=== PATIENT | female | born 1960 | race Caucasian/White ===

== ENCOUNTER 2018-01-02 04:23 | Observation (INO) | payer BC ==
[2018-01-02] MEDS ORDERED: LIDOCAINE 2% VISCOUS SOLN 20 ML UDCUP PO ONE (05:21)
[2018-01-02] MEDS ORDERED: MAG HYDROX/AL HYDROX/SIMETH SUSP 30 ML UDCUP PO ONE (05:21)
[2018-01-02] MEDS ORDERED: METOCLOPRAMIDE HCL ORAL SOLN 10 MG/10 ML UDCUP PO ONE (05:21)
--- NOTE | 2018-01-02 05:26 | ER Document Report ---
ED Medical Screen (RME) - General Chief Complaint: Abdominal Pain Stated Complaint: ABDOMINAL PAIN Mode of Arrival: Ambulatory Information source: Patient TRAVEL OUTSIDE OF THE [place] IN LAST 30 DAYS: No - HPI Notes: 01/02/18 05:23 57-year-old female with history of diabetes presents with epigastric discomfort starting at approximately 9:00 last night. She describes it as ways of pain in the epigastric region radiating straight through to her back. No nausea or vomiting or stool change with this. She did state that she pulled her upper abdomen lifting a heavy trash bag but also thinks this could be related to egg salad she made at approximately 630 last night. She has had some spontaneous improvement in pain but still having some discomfort. On brief exam she has tenderness in the epigastrium to right upper quadrant though no significant Shah sign. I have greeted and performed a rapid initial assessment of this patient. A comprehensive ED assessment with additional diagnostic/treatment considerations , analysis of diagnostic testing and completion of the medical decision making process will be conducted by additional ED providers. - Related Data Allergies/Adverse Reactions: No Known Allergies Allergy (Verified 11/13/15 18:34) Past Medical History - Social History Chew tobacco use (# tins/day): No Frequency of alcohol use: None Drug Abuse: None - Past Medical History Cardiac Medical History: Reports: Hx Hypercholesterolemia, Hx Hypertension Endocrine Medical History: Reports: Hx Diabetes Mellitus Type 2 Renal/ Medical History: Denies: Hx Peritoneal Dialysis Psychiatric Medical History: Reports: Hx Depression - Immunizations Hx Diphtheria, Pertussis, Tetanus Vaccination: Yes Physical Exam - Vital signs Vitals: Temp Pulse Resp BP Pulse Ox 97.5 F 76 18 80/60 L 98 01/02/18 04:42 01/02/18 04:42 01/02/18 04:42 01/02/18 04:42 01/02/18 04:42 Course - Vital Signs Vital signs: Temp Pulse Resp BP Pulse Ox 97.5 F 76 18 80/60 L 98 01/02/18 04:42 01/02/18 04:42 01/02/18 04:42 01/02/18 04:42 01/02/18 04:42 Doctor's Discharge - Discharge Referrals: HERMELINDA GALINDO PA-C [Primary Care Provider] - Follow up as needed
[2018-01-02 06:01] LABS: ABSOLUTE EOSINOPHILS # (AUTO) 0.2 10^3/uL (0.0-0.6); ABSOLUTE LYMPHOCYTES (AUTO) 1.1 10^3/uL (0.5-4.7); ABSOLUTE MONOCYTES (AUTO) 0.4 10^3/uL (0.1-1.4); ABSOLUTE NEUT (AUTO) 5.7 10^3/uL (1.7-8.2); BASOPHILS % (AUTO) 0.5 % (0-2); HEMATOCRIT 40.3 % (36.0-47.0); HEMOGLOBIN 14.1 g/dL (12.0-15.5); MEAN CORPUSCULAR HEMOGLOBIN 30.1 pg (27.0-33.4); MEAN CORPUSCULAR HGB CONC 34.9 g/dL (32.0-36.0); MEAN CORPUSCULAR VOLUME 86 fl (80-97); PLATELET COUNT 274 10^3/uL (150-450); RED BLOOD COUNT 4.67 10^6/uL (3.72-5.28); RED CELL DISTRIBUTION WIDTH 14.5 % (11.5-14.0); SEGMENTED NEUTROPHILS % (AUTO) 77.5 % (42-78); TOTAL CELLS COUNTED % (AUTO) 100 %; WHITE BLOOD COUNT 7.4 10^3/uL (4.0-10.5)
[2018-01-02 06:21] LABS: ALANINE AMINOTRANSFERASE 32 U/L (9-52); ALKALINE PHOSPHATASE 80 U/L (38-126); ANION GAP 10 (5-19); ASPARTATE AMINO TRANSFERASE 33 U/L (14-36); BILIRUBIN,DIRECT 0.4 mg/dL (0.0-0.4); BILIRUBIN,TOTAL 0.4 mg/dL (0.2-1.3); BLOOD UREA NITROGEN 6 mg/dL (7-20); CALCIUM 9.3 mg/dL (8.4-10.2); CARBON DIOXIDE 25 mmol/L (22-30); CHLORIDE 99 mmol/L (98-107); GLUCOSE 153 mg/dL (75-110); LIPASE 151.6 U/L (23-300); POTASSIUM 3.3 mmol/L (3.6-5.0); SODIUM 134.3 mmol/L (137-145); TOTAL PROTEIN 7.4 g/dL (6.3-8.2)
--- NOTE | 2018-01-02 06:28 | ER Document Report ---
ED GI/ - General Mode of Arrival: Ambulatory Information source: Patient TRAVEL OUTSIDE OF THE [place] IN LAST 30 DAYS: No <KRISTIN MACK - Last Filed: 01/02/18 08:36> <REGINALD LEON - Last Filed: 01/02/18 11:06> - General Chief Complaint: Abdominal Pain Stated Complaint: ABDOMINAL PAIN Time Seen by Provider: 01/02/18 06:15 Notes: 57-year-old female that presents to the emergency department today with complaints of abdominal pain that began at 2100 yesterday evening. Patient states that she ate egg salad at about 1830 last night and that was her last meal. Patient states the pain was "slow then progressed". Patient states she feels better now. Patient received a GI cocktail by [facility] provider which she states relieved her pain. (KRISTIN MACK) - Related Data Allergies/Adverse Reactions: No Known Allergies Allergy (Verified 11/13/15 18:34) Past Medical History - General Information source: Patient - Social History Smoking Status: Current Every Day Smoker Cigarette use (# per day): Yes Chew tobacco use (# tins/day): No Frequency of alcohol use: None Drug Abuse: None Lives with: Family Family History: Reviewed & Not Pertinent Patient has suicidal ideation: No Patient has homicidal ideation: No - Past Medical History Cardiac Medical History: Reports: Hx Hypercholesterolemia, Hx Hypertension Endocrine Medical History: Reports: Hx Diabetes Mellitus Type 2 Psychiatric Medical History: Reports: Hx Depression Surgical Hx: Negative - Immunizations Hx Diphtheria, Pertussis, Tetanus Vaccination: Yes <KRISTIN MACK - Last Filed: 01/02/18 08:36> Review of Systems - Review of Systems Constitutional: No symptoms reported EENT: No symptoms reported Cardiovascular: No symptoms reported Respiratory: No symptoms reported Gastrointestinal: See HPI, Abdominal pain Genitourinary: No symptoms reported Female Genitourinary: No symptoms reported Musculoskeletal: No symptoms reported Skin: No symptoms reported Hematologic/Lymphatic: No symptoms reported Neurological/Psychological: No symptoms reported -: Yes All other systems reviewed and negative <KRISTIN MACK - Last Filed: 01/02/18 08:36> Physical Exam <KRISTIN MACK - Last Filed: 01/02/18 08:36> <REGINALD LEON - Last Filed: 01/02/18 11:06> - Vital signs Vitals: Temp Pulse Resp BP Pulse Ox 97.5 F 76 18 80/60 L 98 01/02/18 04:42 01/02/18 04:42 01/02/18 04:42 01/02/18 04:42 01/02/18 04:42 - Notes Notes: Physical Exam: General: Alert, appears well. HEENT: Normocephalic. Atraumatic. PERRL. Extraocular movements intact. Oropharynx clear. Neck: Supple. Non-tender. Respiratory: No respiratory distress. Clear and equal breath sounds bilaterally. Cardiovascular: Regular rate and rhythm. Abdominal: Obese. Epigastric tenderness with palpation. RUQ tenderness with palpation which is a "different type of pain" than she was having prior. No increasing tenderness with palpation with abdominal muscle tightening. Mild diffuse abdominal tenderness with palpation. No distension. Normal Bowel Sounds. Back: Non-tender. No deformity or step off. Extremities: Moves all four extremities. Upper extremities: Normal inspection. Normal ROM. Lower extremities: Normal inspection. No edema. Normal ROM. Neurological: Normal cognition. AAOx4. Normal speech. Psychological: Normal affect. Normal Mood. Skin: Warm. Dry. Normal color. (KRISTIN MACK) Course - Laboratory Result Diagrams: 01/02/18 05:40 01/02/18 05:40 <KRISTIN MACK - Last Filed: 01/02/18 08:36> - Laboratory Result Diagrams: 01/02/18 05:40 01/02/18 05:40 - Diagnostic Test Radiology reviewed: Reports reviewed - Gallbladder ultrasound shows stones, sludge, gallbladder wall thickening with trace pericholecystic fluid. - Consults Dr. Garcia Time consulted: 08:30 Consulted provider: will come to ER <REGINALD LEON - Last Filed: 01/02/18 11:06> - Vital Signs Vital signs: Temp Pulse Resp BP Pulse Ox 97.5 F 76 18 121/78 98 01/02/18 04:42 01/02/18 04:42 01/02/18 04:42 01/02/18 06:32 01/02/18 04:42 - Laboratory Laboratory results interpreted by me: 01/02/18 01/02/18 01/02/18 05:40 05:40 06:42 RDW 14.5 H Sodium 134.3 L Potassium 3.3 L BUN 6 L Glucose 153 H Urine Urobilinogen 2.0 H Discharge <KRISTIN MACK - Last Filed: 01/02/18 08:36> - Discharge Admitting Provider: Surgicalist Unit Admitted: OR <REGINALD LEON - Last Filed: 01/02/18 11:06> - Discharge Clinical Impression: Cholecystitis, acute with cholelithiasis Qualifiers: Cholelithiasis location: gallbladder Biliary obstruction: without biliary obstruction Qualified Code(s): K80.00 - Calculus of gallbladder with acute cholecystitis without obstruction GERD (gastroesophageal reflux disease) Qualifiers: Esophagitis presence: without esophagitis Qualified Code(s): K21.9 - Gastro- esophageal reflux disease without esophagitis Condition: Stable Disposition: ADMITTED INPATIENT Referrals: HERMELINDA GALINDO PA-C [NO LOCAL MD] - Follow up as needed Scribe Attestation: 01/02/18 07:44 I personally performed the services described in the documentation, reviewed and edited the documentation which was dictated to the scribe in my presence, and it accurately records my words and actions. (REGINALD LEON) Scribe Documentation - Scribe Written by Alane:: Marianela Nascimento, 01/02/2018 0845 acting as scribe for :: Harley <KRISTIN MACK - Last Filed: 01/02/18 08:36>
[2018-01-02 07:06] LABS: APPEARANCE,URINE SLIGHTLY-CLOUDY; BILIRUBIN,URINE NEGATIVE (NEGATIVE); COLOR,URINE YELLOW; GLUCOSE, URINE NEGATIVE (NEGATIVE); KETONES,URINE NEGATIVE (NEGATIVE); LEUKOCYTE ESTERASE,URINE NEGATIVE (NEGATIVE); NITRITE,URINE NEGATIVE (NEGATIVE); PROTEIN,URINE NEGATIVE (NEGATIVE); URINE SPECIFIC GRAVITY 1.012
--- NOTE | 2018-01-02 08:23 | RADIOLOGY REPORT (SQ) ---
EXAM DESCRIPTION: U/S ABDOMEN LIMITED W/O DOP COMPLETED DATE/TIME: 01/02/2018 8:08 am REASON FOR STUDY: RUQ pain w/ epigastric pain COMPARISON: None. TECHNIQUE: Dynamic and static grayscale images acquired of the abdomen and recorded on PACS. Additio nal selected color Doppler and spectral images recorded. LIMITATIONS: None. FINDINGS: PANCREAS: No masses. No peripancreatic edema or fluid collections. LIVER: Echotexture is coarse with increased echogenicity consistent with fatty infiltration. LIVER VASCULATURE: Normal directional flow of the main portal vein and hepatic veins. GALLBLADDER: Stones and sludge. Gallbladder wall thickening. Trace pericholecystic fluid. ULTRASOUND-DETECTED HODGSON'S SIGN: Negative. INTRAHEPATIC DUCTS AND COMMON DUCT: CBD and intrahepatic ducts normal caliber. No filling defects. INFERIOR VENA CAVA: Normal flow. AORTA: No aneurysm. RIGHT KIDNEY: Normal size. Normal echogenicity. No solid or suspicious masses. No hydronephrosis. No calcifications. PERITONEAL AND RIGHT PLEURAL SPACE: No ascites or effusions. OTHER: No other significant finding. IMPRESSION: 1. STONES AND SLUDGE IN THE GALLBLADDER WITH GALLBLADDER WALL THICKENING. TRACE PERICHOLECYSTIC FLUI D. NO BILIARY DILATION. REPORTEDLY NEGATIVE SONOGRAPHIC HODGSON SIGN. 2. FATTY INFILTRATION OF THE LIVER. TECHNICAL DOCUMENTATION: JOB ID: [id number] [employer]- All Rights Reserved Reading location - IP/workstation name: [email or web address]
[2018-01-02] MEDS ORDERED: DEXAMETHASONE SOD PHOSPHATE INJ 4 MG/1 ML VIAL ONE (09:48)
[2018-01-02] MEDS ORDERED: ROCURONIUM BROMIDE INJ 50 MG/5 ML VIAL IV ONE (09:48)
[2018-01-02] MEDS ORDERED: NEOSTIGMINE METHYLSULFATE 10 MG/10 ML VIAL ONE (09:48)
[2018-01-02] MEDS ORDERED: ONDANSETRON HCL INJ/PF 4 MG/2 ML SDV ONE (09:48)
[2018-01-02] MEDS ORDERED: GLYCOPYRROLATE 1 MG/5 ML SYRINGE ONE (09:48)
--- NOTE | 2018-01-02 10:23 | EKG REPORT ---
SEVERITY:- ABNORMAL ECG - SINUS RHYTHM NONSPECIFIC T ABNORMALITIES, LATERAL LEADS BORDERLINE PROLONGED QT INTERVAL : Confirmed by: Claudine Cardenas MD 02-Jan-2018 10:22:30
[2018-01-02] MEDS ORDERED: NORMAL SALINE 1000 ML 1,000 ML IV PRN (11:25)
--- NOTE | 2018-01-02 11:25 | PDOC H&P ---
History of Present Illness Admission Date/PCP: KATIANA CASTILLO 01/02/18 Patient complains of: RUQ pain History of Present Illness: ENDY BENJAMIN is a 57 year old female witha c/o RUQ apin. Un US fo the gallbladder has been done and demonstrates cholecystitis with cholelithiasis. She suffers from HTN, hypercholesterolemia, depression, NIDDM. Past Medical History Cardiac Medical History: Reports: Hyperlipidema, Hypertension Endocrine Medical History: Reports: Diabetes Mellitus Type 2 Psychiatric Medical History: Reports: Depression Social History Lives with: Family Smoking Status: Current Every Day Smoker Frequency of Alcohol Use: Rare Hx Recreational Drug Use: No Hx Prescription Drug Abuse: No Family History Family History: Reviewed & Not Pertinent Parental Family History Reviewed: No Children Family History Reviewed: No Sibling(s) Family History Reviewed.: No Medication/Allergy Home Medications: Telmisartan [Micardis 80 mg Tablet] 80 mg PO DAILY 06/19/11 Pravastatin Sodium [Pravachol] 80 mg PO DAILY 01/26/13 Fluoxetine HCl [Prozac 20 mg Capsule] 20 mg PO DAILY #0 capsule 01/27/13 Hydrochlorothiazide 25 mg PO DAILY #0 tablet 01/27/13 Loratadine [Claritin] 10 mg PO DAILY #0 tab.rapdis 01/27/13 Lorazepam [Ativan 1 mg Tablet] 1 mg PO Q8 PRN #30 tab 01/27/13 Potassium Chloride 40 meq PO DAILY 04/11/13 Ciprofloxacin/Hydrocortisone [Cipro Hc Otic Suspension] 3 drop OT BID #1 bottle 08/29/13 Allergies/Adverse Reactions: No Known Allergies Allergy (Verified 11/13/15 18:34) Physical Exam Vital Signs: Temp Pulse Resp BP Pulse Ox 97.5 F 76 18 121/78 98 01/02/18 04:42 01/02/18 04:42 01/02/18 04:42 01/02/18 06:32 01/02/18 04:42 Intake & Output 01/01/18 01/02/18 01/03/18 06:59 06:59 06:59 Weight 80 kg General appearance: PRESENT: no acute distress Head exam: PRESENT: atraumatic Eye exam: PRESENT: EOMI Mouth exam: PRESENT: neck supple Neck exam: PRESENT: full ROM Respiratory exam: PRESENT: rhonchi, wheezes Cardiovascular exam: PRESENT: RRR GI/Abdominal exam: PRESENT: soft - obese, tenderness - RUQ Rectal exam: PRESENT: deferred Extremities exam: PRESENT: full ROM Musculoskeletal exam: PRESENT: full ROM Neurological exam: PRESENT: normal gait Psychiatric exam: PRESENT: normal mood Skin exam: PRESENT: warm Results Laboratory Results: 01/02/18 05:40 01/02/18 05:40 01/02/18 01/02/18 01/02/18 05:40 05:40 06:42 WBC 7.4 RBC 4.67 Hgb 14.1 Hct 40.3 MCV 86 MCH 30.1 MCHC 34.9 RDW 14.5 H Plt Count 274 Seg Neutrophils % 77.5 Lymphocytes % 15.0 Monocytes % 5.0 Eosinophils % 2.0 Basophils % 0.5 Absolute Neutrophils 5.7 Absolute Lymphocytes 1.1 Absolute Monocytes 0.4 Absolute Eosinophils 0.2 Absolute Basophils 0.0 Sodium 134.3 L Potassium 3.3 L Chloride 99 Carbon Dioxide 25 Anion Gap 10 BUN 6 L Creatinine 0.59 Est GFR ( Amer) > 60 Est GFR (Non-Af Amer) > 60 Glucose 153 H Calcium 9.3 Total Bilirubin 0.4 AST 33 ALT 32 Alkaline Phosphatase 80 Total Protein 7.4 Albumin 4.0 Lipase 151.6 Urine Color YELLOW Urine Appearance SLIGHTLY-CLOUDY Urine pH 6.0 Ur Specific [place] 1.012 Urine Protein NEGATIVE Urine Glucose (UA) NEGATIVE Urine Ketones NEGATIVE Urine Blood NEGATIVE Urine Nitrite NEGATIVE Ur Leukocyte Esterase NEGATIVE Urine WBC (Auto) 2 Urine RBC (Auto) 1 Impressions: Abdomen Ultrasound 01/02/18 06:34 IMPRESSION: 1. STONES AND SLUDGE IN THE GALLBLADDER WITH GALLBLADDER WALL THICKENING. TRACE PERICHOLECYSTIC FLUID. NO BILIARY DILATION. REPORTEDLY NEGATIVE SONOGRAPHIC HODGSON SIGN. 2. FATTY INFILTRATION OF THE LIVER. Assessment & Plan - Diagnosis (1) Cholecystitis, acute with cholelithiasis Qualifiers: Cholelithiasis location: gallbladder Biliary obstruction: without biliary obstruction Qualified Code(s): K80.00 - Calculus of gallbladder with acute cholecystitis without obstruction Is this a current diagnosis for this admission?: Yes - Plan Summary Plan Summary: A/ Acute cholecystitis with cholelithiasis NIDDM, BS 153 HTN controlled high cholesterols Blood work WNL except for low K 3.3 P/ laparoscopic cholecystectomy, possible open, possible cholangiogram Procedure, risks, benefits, complications including bleeding from the liver and or injury to the bile ducts [facility] have been discussed, she understands all the above, her questions were answered, and she decides to proceed. NS 2 L bolus, then 125 mL/hr Mefoxin 2 gr preop KCl 40 mEq IVPB
[2018-01-02] MEDS ORDERED: NORMAL SALINE 1000 ML 2,000 ML IV ONE (11:26)
[2018-01-02] MEDS ORDERED: CEFOXITIN 1 GM/D5W RTU 1 GM/50 ML RTUPB IV ONE (11:27)
[2018-01-02] MEDS: POTASSI CL 20 MEQ/50 ML RIDER 20 MEQ/50 ML RTUPB IV SCH ×2 (12:42→16:20)
[2018-01-02] MEDS ORDERED: ALBUTEROL SULFATE 0.083% NEB 2.5 MG/3 ML AMPUL NEB ONE (13:50)
[2018-01-02] MEDS ORDERED: POTASSI CL 20 MEQ/50 ML RIDER 20 MEQ/50 ML RTUPB IV ONE (16:13)
[2018-01-02] MEDS ORDERED: FENTANYL CITRATE INJ/PF 250 MCG/5 ML AMPULE ONE (17:30)
[2018-01-02] MEDS ORDERED: MIDAZOLAM 2 MG/2 ML INJ ONE (17:30)
[2018-01-02] MEDS ORDERED: PROPOFOL INJ 200 MG/20 ML VIAL IV ONE (17:30)
[2018-01-02] MEDS ORDERED: HYDROMORPHONE HCL INJ/PF 2 MG/ML AMPULE ONE (17:30)
[2018-01-02] MEDS ORDERED: EPHEDRINE SULFATE INJ 50 MG/1 ML AMPULE ONE (17:30)
[2018-01-02] MEDS ORDERED: BUPIVACAINE HCL 0.5%-EPI 1:200000 INJ/PF 30 ML VIAL ONE (17:32)
[2018-01-02] MEDS ORDERED: ONDANSETRON HCL INJ/PF 4 MG/2 ML SDV IV PRN ×2 (18:09→19:42)
[2018-01-02] MEDS ORDERED: MEPERIDINE HCL/PF INJ 25 MG/1 ML DISP.SYRIN IV PRN (18:09)
[2018-01-02] MEDS ORDERED: DIPHENHYDRAMINE HCL 50 MG/ML VIAL IV PRN (18:09)
[2018-01-02] MEDS ORDERED: FENTANYL CITRATE INJ/PF 100 MCG/2 ML AMPUL IV PRN ×3 (18:09)
--- NOTE | 2018-01-02 19:22 | Operative Report ---
Nonrecallable Operative Report DATE OF SURGERY: 01/02/18 PREOPERATIVE DIAGNOSIS: symptomatic cholelithiasis. cholecystitis acute POSTOPERATIVE DIAGNOSIS: same OPERATION: laparoscopic cholecystectomy SURGEON: JASON FRANCO ANESTHESIA: GA - plus 25 mL 1% lidocaine TISSUE REMOVED OR ALTERED: gallbladder COMPLICATIONS: none ESTIMATED BLOOD LOSS: 10 mL PROCEDURE: see dictation
[2018-01-02] MEDS ORDERED: MORPHINE SULFATE 10 MG/ML INJ IV PRN (19:42)
[2018-01-02] MEDS ORDERED: ACETAMINOPHEN 325 MG TABLET PO PRN (19:42)
[2018-01-02] MEDS ORDERED: CEFOXITIN 1 GM/D5W RTU 1 GM/50 ML RTUPB IV SCH (19:45)
[2018-01-02] MEDS ORDERED: NAPROXEN 250 MG TABLET PO SCH (19:45)
[2018-01-02] MEDS ORDERED: LORAZEPAM INJ 2 MG/1 ML VIAL ONE (20:03)
[2018-01-02] MEDS: ENOXAPARIN SODIUM INJ 40 MG/0.4 ML DISP.SYRIN SUBCUT SCH (21:34)
[2018-01-02] MEDS: FAMOTIDINE INJ/PF 20 MG/2 ML SDV IV SCH (21:34)
[2018-01-02] MEDS: CEFOXITIN SODIUM 2 GM in DEXTROSE 5%-WATER 100 ML IV SCH (21:36)
[2018-01-02] MEDS ORDERED: CEFOXITIN SODIUM 2 GM in DEXTROSE 5%-WATER 100 ML IV SCH (22:00)
[2018-01-02] MEDS ORDERED: ATORVASTATIN CALCIUM 20 MG TABLET PO SCH (22:00)
[2018-01-03 05:54] LABS: ABSOLUTE LYMPHOCYTES (AUTO) 0.9 10^3/uL (0.5-4.7); ABSOLUTE MONOCYTES (AUTO) 0.3 10^3/uL (0.1-1.4); ABSOLUTE NEUT (AUTO) 9.8 10^3/uL (1.7-8.2); BASOPHILS % (AUTO) 0.1 % (0-2); HEMATOCRIT 35.1 % (36.0-47.0); HEMOGLOBIN 12.1 g/dL (12.0-15.5); LYMPHOCYTES % (AUTO) 8.5 % (13-45); MEAN CORPUSCULAR HEMOGLOBIN 30.3 pg (27.0-33.4); MEAN CORPUSCULAR HGB CONC 34.4 g/dL (32.0-36.0); MEAN CORPUSCULAR VOLUME 88 fl (80-97); MONOCYTES % (AUTO) 2.8 % (3-13); PLATELET COUNT 271 10^3/uL (150-450); RED BLOOD COUNT 3.99 10^6/uL (3.72-5.28); RED CELL DISTRIBUTION WIDTH 14.8 % (11.5-14.0); SEGMENTED NEUTROPHILS % (AUTO) 88.6 % (42-78); TOTAL CELLS COUNTED % (AUTO) 100 %; WHITE BLOOD COUNT 11.1 10^3/uL (4.0-10.5)
[2018-01-03 06:16] LABS: ALANINE AMINOTRANSFERASE 40 U/L (9-52); ALBUMIN 3.5 g/dL (3.5-5.0); ALKALINE PHOSPHATASE 62 U/L (38-126); ANION GAP 7 (5-19); ASPARTATE AMINO TRANSFERASE 61 U/L (14-36); BILIRUBIN,DIRECT 0.4 mg/dL (0.0-0.4); BILIRUBIN,TOTAL 0.4 mg/dL (0.2-1.3); BLOOD UREA NITROGEN 3 mg/dL (7-20); CARBON DIOXIDE 23 mmol/L (22-30); CHLORIDE 107 mmol/L (98-107); GLUCOSE 116 mg/dL (75-110); SODIUM 136.5 mmol/L (137-145); TOTAL PROTEIN 6.7 g/dL (6.3-8.2)
[2018-01-03] MEDS: CEFOXITIN SODIUM 2 GM in DEXTROSE 5%-WATER 100 ML IV SCH (06:22)
[2018-01-03 06:29] LABS: POTASSIUM 4.4 mmol/L (3.6-5.0)
[2018-01-03] MEDS ORDERED: METFORMIN HCL 500 MG TABLET PO SCH (08:00)
[2018-01-03] MEDS: FAMOTIDINE INJ/PF 20 MG/2 ML SDV IV SCH (09:53)
[2018-01-03] MEDS: ENOXAPARIN SODIUM INJ 40 MG/0.4 ML DISP.SYRIN SUBCUT SCH (09:53)
[2018-01-03] MEDS ORDERED: FLUOXETINE HCL 20 MG CAPSULE PO SCH (10:00)
[2018-01-03] MEDS ORDERED: POTASSIUM CHLORIDE 10 MEQ CAPSULE.ER PO SCH (10:00)
[2018-01-03] MEDS ORDERED: (PENDING PHARMACY ID) (Telmisartan [Micardis 80 Mg Tablet] 80 MG) PO SCH (10:00)
[2018-01-03] MEDS ORDERED: HYDROCHLOROTHIAZIDE 25 MG TABLET PO SCH (10:00)
[2018-01-03] MEDS ORDERED: (PENDING PHARMACY ID) (Metformin Hcl [Metformin Hcl Er] 500 MG) PO SCH (10:00)
[2018-01-03] MEDS ORDERED: LOSARTAN POTASSIUM 50 MG TABLET PO SCH (10:00)
--- NOTE | 2018-01-03 10:35 | PDOC PROGRESS REPORT ---
Subjective Progress Note for:: 01/03/18 Subjective:: no c/o Reason For Visit: CHOLELITHIASIS WITH ACUTE CHOLECYSTITIS, Physical Exam Vital Signs: Temp Pulse Resp BP Pulse Ox 97.7 F 81 16 147/89 H 98 01/03/18 07:30 01/03/18 07:30 01/03/18 07:30 01/03/18 07:30 01/03/18 07:30 Intake & Output 01/02/18 01/03/18 01/04/18 06:59 06:59 06:59 Intake Total 2106 100 Output Total 510 Balance 1596 100 General appearance: PRESENT: no acute distress Respiratory exam: PRESENT: clear to auscultation ike Cardiovascular exam: PRESENT: RRR GI/Abdominal exam: PRESENT: normal bowel sounds, soft, other - incisions c/d/i Results Laboratory Results: 01/03/18 04:30 01/03/18 04:30 01/03/18 01/03/18 04:30 04:30 WBC 11.1 H RBC 3.99 Hgb 12.1 Hct 35.1 L MCV 88 MCH 30.3 MCHC 34.4 RDW 14.8 H Plt Count 271 Seg Neutrophils % 88.6 H Lymphocytes % 8.5 L Monocytes % 2.8 L Eosinophils % 0.0 Basophils % 0.1 Absolute Neutrophils 9.8 H Absolute Lymphocytes 0.9 Absolute Monocytes 0.3 Absolute Eosinophils 0.0 Absolute Basophils 0.0 Sodium 136.5 L Potassium 4.4 D Chloride 107 Carbon Dioxide 23 Anion Gap 7 BUN 3 L Creatinine 0.53 Est GFR ( Amer) > 60 Est GFR (Non-Af Amer) > 60 Glucose 116 H Calcium 8.0 L Total Bilirubin 0.4 AST 61 H ALT 40 Alkaline Phosphatase 62 Total Protein 6.7 Albumin 3.5 Impressions: Abdomen Ultrasound 01/02/18 06:34 IMPRESSION: 1. STONES AND SLUDGE IN THE GALLBLADDER WITH GALLBLADDER WALL THICKENING. TRACE PERICHOLECYSTIC FLUID. NO BILIARY DILATION. REPORTEDLY NEGATIVE SONOGRAPHIC HODGSON SIGN. 2. FATTY INFILTRATION OF THE LIVER. Assessment & Plan - Diagnosis (1) Cholecystitis, acute with cholelithiasis Qualifiers: Cholelithiasis location: gallbladder Biliary obstruction: without biliary obstruction Qualified Code(s): K80.00 - Calculus of gallbladder with acute cholecystitis without obstruction Is this a current diagnosis for this admission?: Yes - Plan Summary Plan Summary: A/ POD #1 after lap iesha VSS, AF Blood work WNL PE unremarkable P/ Home today f/u with General Surgery office in 2 weeks ([facility]) activities as tolerated without restrictions shower only x 2 weeks, then can shower no wound car needed Tylenol and Aleve over the counter as needed for pain regular diet resume home meds quit smoking, have her PCP prescribe Chantix or Nicorette patches/gums
[2018-01-03 11:23] VITALS: BP 131/73
--- NOTE | 2018-01-03 16:45 | DISCHARGE SUMMARY E ---
Discharge Summary NAME: ENDY BENJAMIN : 1960 AGE: 57Y ADMITTED: 01/02/2018 DISCHARGED: 01/03/2018 FINAL DIAGNOSIS: Acute cholecystitis/cholelithiasis. PROCEDURE: On 01/02, the patient underwent laparoscopic cholecystectomy. COMPLICATIONS: None. HOSPITAL COURSE: A 57-year-old female who presented to the emergency room with a complaint of right upper quadrant pain and intense nausea, found to have acute cholecystitis and cholelithiasis on ultrasound. Blood work was within normal limits. The patient was taken to surgery the same day and underwent an uneventful laparoscopic cholecystectomy. She was admitted postoperatively. Her postop course was unremarkable. Vital signs remained stable. Blood work was within normal limits, except for WBC of 11. Liver profile was normal. Physical exam unremarkable. Abdomen soft. Incision clean, dry and intact. Vital signs stable. Patient able to tolerate a regular diet. Discharged home. DISPOSITION: Patient was discharged home on January 03. DISCHARGE INSTRUCTIONS: Followup in the office in 2 weeks. Regular diet. Resume preoperative medications. Activities as tolerated. Shower only for 2 weeks. Baths allowed afterward. No wound care needed. Tylenol and Aleve as needed [id number] for pain. DICTATING PHYSICIAN: JASON FRANCO M.D. [id number] PHY#: [id number] ID: [id number] JOB#: [id number] ACCT: [id number] cc:Stacie SCHAEFER M.D. > MTDD
--- NOTE | 2018-01-06 12:02 | OPERATIVE REPORT E ---
Operative Report NAME: ENDY BENJAMIN : 1960 AGE: 57Y DATE OF SURGERY: 01/02/2018 ROOM: 535 PREOPERATIVE DIAGNOSES: 1. Cholelithiasis. 2. Acute cholecystitis. POSTOPERATIVE DIAGNOSIS: 1. Cholelithiasis. 2. Acute cholecystitis. OPERATION: Laparoscopic cholecystectomy. SURGEON: JASON FRANCO M.D. PANTS PRESSER AUTOMATIC: None. ESTIMATED BLOOD LOSS: Less than 10 mL. COMPLICATIONS: None. FLUIDS GIVEN: 1500. DRAINS: None. ANESTHESIA: General plus 3 mL with 1% lidocaine. INDICATION: This is a 57-year-old female who presented to the emergency room complaining of right abdominal pain, intense nausea/vomiting, found to have acute cholecystitis, had cholelithiasis on ultrasound, lab work revealed abnormal amylase. The patient was taken to surgery to undergo laparoscopic cholecystectomy plus intraoperative cholangiogram. The procedure in its entirety along with complications have been explained to the patient including the possibility of either bleeding or injury to common bile duct which would require repair and transfer to a tertiary center. She was explained the above, her questions were answered, and she desired to proceed. DESCRIPTION OF PROCEDURE: Her procedure was done in the operating room. The patient was placed in the supine position. Sedation provided by Anesthesia intubation. Abdomen prepped and draped in the usual fashion. Incision was made just above the umbilicus for a 5 mm port. After that, the scope was inserted through the abdominal wall while the skin was tented by towel clips into the peritoneal cavity. A secure vision was then established, and under direct visualization a 12 mm port and two 5 mm ports were placed in the epigastrium and the right lower quadrant of the abdomen respectively. The patient was then turned in a reverse Trendelenburg position with the right side elevated, and the gallbladder was grasped by the fundus and elevated and retroflexed, and the neck waspulled anterior to the patient's right. The critical view of safety was obtained with hook cautery by dividing the peritoneal attachments medial and lateral to the cystic neck and body so that disconnection of the gallbladder body was. In addition, the dissection was continued medially and laterally in the direction of the cystic duct until this was completely identified. A posterior window was obtained behind the cystic duct with the hook cautery, until the cystic duct was completely identified; once this was accomplished, this was gently cleaned with a hook cautery and clipped and dissected, clipped proximally and distally and divided with scissors. The gallbladder was then resected off the gallbladder bed using a hook cautery and taken from the peritoneal cavity with an Endo-Bag. The pneumoperitoneum was again re-established, liver bed was examined, no debris was noted. The area was irrigated with about 700 mL of sterile saline which was fully aspirated, and 0-Vicryl suture was used with a fascia closure device to close the umbilical fascia defect and left untied. All the ports were removed. The CO2 was released. The fascia deep in the umbilicus was closed with a [id number] #0-Vicryl suture. The skin incision was then infiltrated with additional 1% lidocaine and closed with 4-0 Vicryl subcuticular suture followed by Dermabond. The patient tolerated the procedure well, extubated, and transferred to the recovery room in satisfactory condition. DICTATING PHYSICIAN: JASON FRANCO M.D. [id number] PHY#: [id number] ID: [id number] JOB#: [id number] ACCT: [id number] cc:JASON FRANCO M.D. > MTDD
== END 2018-01-03 12:01 | disposition home or self-care (01) ==
LOC: ER 04:23 → EH 11:11 → INTOOBSV 11:11 → 5 20:44
PROVIDERS: ADMIT Emergency Medicine; ATTEND Emergency Medicine
PROC: 0FT44ZZ Resection of Gallbladder, Percutaneous Endoscopic Approach (ICD-10-PCS; principal; 2018-01-02 16:00)
DX: K80.10 Calculus of gallbladder with chronic cholecystitis without obstruction (principal); F17.210 Nicotine dependence, cigarettes, uncomplicated; I10 Essential (primary) hypertension; E78.00 Pure hypercholesterolemia, unspecified; E11.9 Type 2 diabetes mellitus without complications; E66.9 Obesity, unspecified; K21.9 Gastro-esophageal reflux disease without esophagitis; Z68.32 Body mass index [BMI] 32.0-32.9, adult
CPT/HCPCS: 93005; 99285; 36415 ×2; 87040; 83690; 85025 ×2; 80053 ×2; 81001; 88304 ×2; 76705; 93010; 47562; G0378 ×2; J2250; J3490 ×5; J1100; J0694 ×2; J3010; J2270; J1650 ×2; J1170; J2060; J2405; J3480; J2704; S0028 ×2; 790

== ENCOUNTER 2018-07-06 05:49 | Emergency (ER) | payer BC ==
--- NOTE | 2018-07-06 06:56 | ER Document Report ---
ED General - General Chief Complaint: Abscess Stated Complaint: POSSIBLE INSECT BITE Time Seen by Provider: 07/06/18 06:49 Primary Care Provider: CHRISTIAN FLORES FNP-C [Primary Care Provider] - Follow up as needed TRAVEL OUTSIDE OF THE [place] IN LAST 30 DAYS: No - HPI Notes: Patient is a 57-year-old female that presents to the emergency department for chief complaint of facial abscess. Patient states she started noticing the area on 06/29/18. She was seen at an urgent care facility and prescribed Bactrim and mupirocin cream on 06/30/18. She states she has missed 1 or 2 doses of the Bactrim and mupirocin cream since starting but has been mostly compliant. She states the area does look improved and is less painful but has not completely resolved. She states occasionally it will drain a yellowish discharge. She denies any facial injury. She denies any difficulty swallowing or sensation of swelling under her tongue. She denies any associated fevers or chills. She states the pain is moderate but she has not required medicine for pain at home. Past Medical History: Diabetes, hypertension Past Surgical History: Reviewed in chart Social History: Denies drugs alcohol and tobacco Family History: Reviewed and noncontributory for presenting illness Allergies: Reviewed, see documented allergy list. REVIEW OF SYSTEMS: CONSTITUTIONAL : No fever No chills No diaphoresis No recent illness EENT: No vision changes No congestion No sore throat CARDIOVASCULAR: No chest pain No palpitations RESPIRATORY: No shortness of breath No cough No difficulty breathing GASTROINTESTINAL: No abdominal pain No nausea No vomiting No diarrhea GENITOURINARY: No dysuria No hematuria No difficulty urinating MUSCULOSKELETAL: No back pain No leg pain No arm pain SKIN: No rashes lesions LYMPHATIC: No swollen, enlarged glands. NEUROLOGICAL: No lightheadedness No headache No weakness No paresthesias PSYCHIATRIC: No anxiety No depression PHYSICAL EXAMINATION: Vital signs reviewed, nursing noted reviewed. GENERAL: Well-appearing, well-nourished and in no acute distress. HEAD: Atraumatic, normocephalic. EYES: Eyes appear normal, extraocular movements intact, sclera anicteric, conjunctiva are normal. ENT: 1.0 x 1.5 area of induration and fluctuance over left mandible, no overlying erythema or [place], no active bleeding or drainage, mildly tender to palpation. Nares patent, oropharynx clear without exudates. Moist mucous membranes. NECK: Normal range of motion, supple without lymphadenopathy LUNGS: Breath sounds clear to auscultation bilaterally and equal. No wheezes rales or rhonchi. HEART: Regular rate and rhythm without murmurs ABDOMEN: Soft, nontender, normoactive bowel sounds. No rebound, guarding, or rigidity. No masses appreciated. EXTREMITIES: Nontender, good range of motion, no pitting or edema. NEUROLOGICAL: No focal neurological deficits. Moves all extremities spontaneously Motor and sensory grossly intact on exam. PSYCH: Normal mood, normal affect. SKIN: Warm, Dry, normal turgor, see ENT section - Related Data Allergies/Adverse Reactions: No Known Allergies Allergy (Verified 11/13/15 18:34) Past Medical History - Social History Smoking Status: Current Every Day Smoker Chew tobacco use (# tins/day): No Drug Abuse: None Family History: Reviewed & Not Pertinent Patient has suicidal ideation: No Patient has homicidal ideation: No - Past Medical History Cardiac Medical History: Reports: Hx Hypercholesterolemia, Hx Hypertension Endocrine Medical History: Reports: Hx Diabetes Mellitus Type 2 Renal/ Medical History: Denies: Hx Peritoneal Dialysis Psychiatric Medical History: Denies: Hx Depression - denies Past Surgical History: Reports: Hx Cholecystectomy - Immunizations Hx Diphtheria, Pertussis, Tetanus Vaccination: Yes Physical Exam - Vital signs Vitals: Temp Pulse Resp BP Pulse Ox 97.7 F 94 14 144/86 H 94 07/06/18 05:51 07/06/18 05:51 07/06/18 05:51 07/06/18 05:51 07/06/18 05:51 Course - Re-evaluation Re-evalutation: 07/06/18 07:00 Vitals reviewed per nursing notes reviewed. Because of the location on patient's face I elected to start with needle aspiration of her fluctuant area. Superficial aspiration did have very trace amounts of purulence however with deep aspiration the drainage was consistent with cystic material. I currently feel she has a sebaceous cyst over her left mandible with a small overlying area of abscess. I was able to drain most of it with needle aspiration and expression. Patient tolerated this very well. The skin overlying this area has no erythema to suggest a local cellulitis, I advised patient to finish her Bactrim as prescribed. She was referred to surgery for further management of her cyst if it re-accumulates. I counseled her on wound management. She was counseled on return precautions and verbalized understanding. She was stable at discharge. - Vital Signs Vital signs: Temp Pulse Resp BP Pulse Ox 97.7 F 94 14 144/86 H 94 07/06/18 05:51 07/06/18 05:51 07/06/18 05:51 07/06/18 05:51 07/06/18 05:51 Procedures - Incision and Drainage Left Face Time completed: 06:45 Type: Simple, Single Incision Method: Incision made with needle Notes: 07/06/18 07:02 Area cleaned with alcohol wipe. 18-gauge needle used for aspiration inserted over fluctuant area. Initial drainage was very trace amount of blood and purulence. Deeper aspiration revealed cystic material. With digital expression of this area was able to extract a moderate amount of cystic material. The area of swelling has greatly diminished. She does have a trace amount of bleeding after procedure and Band-Aid was placed. Patient tolerated well with no immediate complications Discharge - Discharge Clinical Impression: Sebaceous cyst, Facial abscess Condition: Stable Disposition: HOME, SELF-CARE Instructions: Trimethoprim-Sulfa ([facility]), Abscess ([facility]) Additional Instructions: Please return to the emergency department if you have any worsening, or concern of your symptoms. Please return to the emergency department if you develop chest pain, difficulty breathing, severe abdominal pain, or ongoing vomiting. Please follow-up with your primary care physician in 2-3 days and any other recommended physicians. If prescribed, take all medications as directed. If you have any questions or concerns do not hesitate to return the emergency department for evaluation. The area on your left face drained some cystic material. Cysts are not an infection and can reaccumulate after drainage. If the area continues to be swollen without overlying redness or pain this is indicative of recurrence of your cyst. Cyst can be removed if they become bothersome. Please follow-up with the general surgeon referred to you for further management Referrals: AILEEN MORALES MD [ACTIVE STAFF] - Follow up as needed CHRISTIAN LFORES FNP-C [Primary Care Provider] - Follow up in 3-5 days
[2018-07-06 07:01] VITALS: BP 134/77
== END 2018-07-06 07:01 | disposition home or self-care (01) ==
LOC: ER 05:49
DX: L72.3 Sebaceous cyst (principal); L02.01 Cutaneous abscess of face; T37.0X6A Underdosing of sulfonamides, initial encounter; T49.0X6A Underdosing of local antifungal, anti-infective and anti-inflammatory drugs, initial encounter; Z91.14 Patient's other noncompliance with medication regimen; E11.9 Type 2 diabetes mellitus without complications; I10 Essential (primary) hypertension; F17.200 Nicotine dependence, unspecified, uncomplicated
CPT/HCPCS: 99283

== ENCOUNTER 2018-11-17 07:19 | Emergency (ER) | payer BC ==
[2018-11-17 10:07] VITALS: BP 122/83
--- NOTE | 2018-11-17 10:29 | ER Document Report ---
ED General - General Chief Complaint: Back Pain Stated Complaint: LOW BACK PAIN Time Seen by Provider: 11/17/18 09:34 Primary Care Provider: CHER PISANO FNP-C [Primary Care Provider] - Follow up as needed TRAVEL OUTSIDE OF THE [place] IN LAST 30 DAYS: No - HPI Notes: Patient is a 58-year-old female with a history of chronic low back pain who presents the emergency department for evaluation of exacerbation of said back pain. It is in her lower back. It occasionally radiates around to bilateral legs, anterior thighs. She describes it as a sharp and stabbing pain. Is wo rsened by movement. Nothing seems to make it better. She denies any bowel or bladder incontinence, no saddle anesthesia, no focal numbness or weakness. She had an MRI a few years ago, has not actually followed up in regards to any treatment for her back pain. She states she went to [facility] a few weeks ago. They treated her with ibuprofen and Robaxin. She states that they were of no help. - Related Data Allergies/Adverse Reactions: No Known Allergies Allergy (Verified 11/17/18 07:41) Past Medical History - General Information source: Patient - Social History Smoking Status: Current Every Day Smoker Chew tobacco use (# tins/day): No Frequency of alcohol use: None Drug Abuse: None Family History: Reviewed & Not Pertinent Patient has suicidal ideation: No Patient has homicidal ideation: No - Past Medical History Cardiac Medical History: Reports: Hx Hypercholesterolemia, Hx Hypertension Endocrine Medical History: Reports: Hx Diabetes Mellitus Type 2 Renal/ Medical History: Denies: Hx Peritoneal Dialysis GI Medical History: Reports: Hx Gastroesophageal Reflux Disease Psychiatric Medical History: Denies: Hx Depression - denies Past Surgical History: Reports: Hx Cholecystectomy - Immunizations Hx Diphtheria, Pertussis, Tetanus Vaccination: Yes Review of Systems - Review of Systems Constitutional: No symptoms reported EENT: No symptoms reported Cardiovascular: No symptoms reported Respiratory: No symptoms reported Gastrointestinal: No symptoms reported Genitourinary: No symptoms reported Female Genitourinary: No symptoms reported Musculoskeletal: See HPI Skin: No symptoms reported Neurological/Psychological: No symptoms reported Physical Exam - Vital signs Vitals: Temp Pulse Resp BP Pulse Ox 97.4 F 89 14 168/98 H 98 11/17/18 07:23 11/17/18 07:23 11/17/18 07:23 11/17/18 07:23 11/17/18 07:23 - Notes Notes: Vital signs reviewed, please refer to chart. Head is normocephalic, atraumatic. Pupils equal round, reactive to light. Neck is supple without meningismus. Heart is regular rate and rhythm. Lungs are clear to auscultation bilaterally. Abdomen is soft, nontender, normoactive bowel sounds throughout. Extremities without cyanosis, clubbing. Posterior calves are nontender. Peripheral pulses are equal. Skin is warm and dry. Examination of the spine yields no midline tenderness or step-off. She has paraspinal musculature tenderness noted from L3-L5 bilaterally, left greater than right. Positive piriformis tenderness. Negative straight leg raise bilaterally. Patellar reflex 3+ bilaterally, Achilles reflex 2+ bilaterally. Sensation is intact. Strength test avoided secondary to pain. Sensation is intact. Course - Re-evaluation Re-evalutation: 11/17/18 10:29 Patient presents to the emergency department for evaluation of low back pain with radiation into her legs. She is had an MRI in the past. Unfortunately, secondary to her diabetes, I am unable to start her on a steroid. I will get and send her home with Flexeril and a short course of pain medication. She is told to watch for dizziness and drowsiness with these medications. She is to continue the ibuprofen that she has at home, taken as scheduled intervals with food. She is to follow-up with primary care, return to the ED with worsening or new concerning symptoms of any sort. - Vital Signs Vital signs: Temp Pulse Resp BP Pulse Ox 97.7 F 79 18 122/83 100 11/17/18 10:05 11/17/18 10:05 11/17/18 10:05 11/17/18 10:05 11/17/18 10:05 Discharge - Discharge Clinical Impression: Acute exacerbation of chronic low back pain Condition: Stable Disposition: HOME, SELF-CARE Instructions: Low Back Pain ([facility]), Oral Narcotic Medication ([facility]) Additional Instructions: Take medications as prescribed. Watch for dizziness and drowsiness with these medications. Please take ibuprofen as well, scheduled with food. Follow-up with your primary care provider this week. Return to the emergency department with worsening or new concerning symptoms. Referrals: CHER PISANO FNP-C [Primary Care Provider] - Follow up as needed
== END 2018-11-17 10:50 | disposition home or self-care (01) ==
LOC: ER 07:19
DX: G89.29 Other chronic pain (principal); M54.5 Low back pain; E11.9 Type 2 diabetes mellitus without complications; I10 Essential (primary) hypertension; F17.200 Nicotine dependence, unspecified, uncomplicated
CPT/HCPCS: 99283